=== PATIENT | female | born 1975 | race Two or more races ===

== ENCOUNTER → 2017-02-03 | Outpatient (CLI) | payer OTHER | LOC: FIMAGING 14:32 | PROVIDERS: ATTEND Family Medicine | DX: Z12.39 Encounter for other screening for malignant neoplasm of breast (principal); N64.4 Mastodynia ==

== ENCOUNTER → 2017-04-26 | Outpatient (CLI) | payer OTHER | LOC: CIMAGING 07:44 | PROVIDERS: ATTEND Family Medicine | DX: N92.6 Irregular menstruation, unspecified (principal); N88.8 Other specified noninflammatory disorders of cervix uteri | CPT/HCPCS: 76856-PO ==

== ENCOUNTER 2017-09-06 17:51 | Emergency (ER) | payer SELFPAY ==
[2017-09-06 18:22] VITALS: O2SAT 97
--- NOTE | 2017-09-06 19:56 | EDPHY ---
H & P Stated Complaint: Not feeling well since yesterday;inpt @ [facility] post [facility],dc mon Time Seen by Provider: 09/06/17 19:38 HPI/ROS: CHIEF COMPLAINT: Headache HISTORY OF PRESENT ILLNESS: The patient is a 42-year-old female who comes to the emergency department complaining of left-sided headache. She reports that she was discharged from [facility] on Monday after being there for 23 days with some type of intracranial hemorrhage complicated by a right-sided CVA that affected her left side vision. She states that they could not find the bleed after 2 catheterizations. Those symptoms have now resolved. She was discharged on daily aspirin. [facility] who discontinued her aspirin. Yesterday and today she developed a headache. She denies chest pain. She is not on any anticoagulants. She has taken Tylenol around 2:00 p.m. with moderate improvement. No fever. No nausea vomiting. No altered mental status. REVIEW OF SYSTEMS: Constitutional: denies: chills, fever, recent illness, recent injury EENTM: denies: blurred vision, double vision, nose congestion Respiratory: denies: cough, shortness of breath Cardiac: denies: chest pain, irregular heart rate, lightheadedness, palpitations Gastrointestinal/Abdominal: denies: abdominal pain, diarrhea, nausea, vomiting, blood streaked stools Genitourinary: denies: dysuria, frequency, hematuria, pain Musculoskeletal: denies: joint pain, muscle pain Skin: denies: lesions, rash, jaundice, bruising Neurological: Headache no weakness numbness or paresthesias Hematologic/Lymphatic: denies: blood clots, easy bleeding, easy bruising Immunologic/allergic: denies: HIV/AIDS, transplant EXAM: GENERAL: Well-appearing, well-nourished and in no acute distress. HEAD: Atraumatic, normocephalic. EYES: Pupils equal round and reactive to light, extraocular movements intact, sclera anicteric, conjunctiva are normal. ENT: TMs normal, nares patent, oropharynx clear without exudates. Moist mucous membranes. NECK: Normal range of motion, supple without lymphadenopathy or JVD. LUNGS: Breath sounds clear to auscultation bilaterally and equal. No wheezes rales or rhonchi. HEART: Regular rate and rhythm without murmurs, rubs or gallops. ABDOMEN: Soft, nontender, normoactive bowel sounds. No guarding, no rebound. No masses appreciated. BACK: No CVA tenderness, no spinal tenderness, step-offs or deformities EXTREMITIES: Normal range of motion, no pitting or edema. No clubbing or cyanosis. NEUROLOGICAL: NIH stroke score 0, Cranial nerves II through XII grossly intact. Normal speech, normal gait. 5/5 strength, normal movement in all extremities, normal sensation PSYCH: Normal mood, normal affect. SKIN: Warm, dry, normal turgor, no visible rashes or lesions. Source: Patient Exam Limitations: No limitations - Personal History LMP (Females 10-55): 22-28 Days Ago Current Tetanus Diphtheria and Acellular Pertussis (TDAP): Yes Tetanus Vaccine Date: within ten years - Medical/Surgical History Hx Asthma: No Hx Chronic Respiratory Disease: No Hx Diabetes: No Hx Cardiac Disease: No Hx Renal Disease: No Hx Cirrhosis: No Hx Alcoholism: No Hx HIV/AIDS: No Hx Splenectomy or Spleen Trauma: No Other PMH: pmh- Intracranial hemorrhage, , "spot on lung per xray", GERD,. PSH: appy 02/2016 - Family History Significant Family History: No pertinent family hx - Social History Smoking Status: Former smoker Constitutional: Initial Vital Signs Temperature (C) 37 C 09/06/17 18:05 Heart Rate 63 09/06/17 18:05 Respiratory Rate 18 09/06/17 18:05 Blood Pressure 123/70 H 09/06/17 18:05 O2 Sat (%) 97 09/06/17 18:05 O2 Delivery Mode Room Air Allergies/Adverse Reactions: codeine [Codeine] Allergy (Mild, Verified 09/06/17 18:17) GI tramadol Allergy (Verified 09/06/17 18:19) "makes me have a h/a" Home Medications: Medication Instructions Recorded Aspirin 81mg (*) 10/27/16 Verapamil [Calan 40MG (*)] 40 mg PO 09/06/17 Medical Decision Making - Diagnostics Imaging Results: Imaging Impressions Head CT 09/06/17 19:50 Impression: Normal. Results called and discussed with Dr. Jay Villanueva at 09/06/2017 20:23. ED Course/Re-evaluation: I did evaluate the patient's discharge summary on [facility]. Appears that she was admitted with a small volume left subarachnoid hemorrhage. CT angio and MRI were negative except for at 1 point when she had transient vision loss in her left eye for 20 minutes she had a small area in her right frontal lobe. This vision loss resolved. Is thought to be due to vasospasm and she has been on verapamil ever since. She was discharged and weaned off of Keppra. 8:30 p.m. we discussed the head CT which is reassuring. The patient feels much better and is eager to go home. She again declined pain medication. She is tapering off of prednisone and also taking verapamil. She thinks that the verapamil may be causing her headaches. I advised her to call the people who prescribed from the [place] to ask if she can stop or she needs to continue it. She she states that she has left messages with them. She declines further workup or testing at this time and is ready to go home. We discussed indications for returning. Differential Diagnosis: Partial list of the Differential diagnosis considered include but were not limited to; medication reaction, headache, migraine, intracranial hemorrhage, see a and although unlikely based on the history and physical exam, I also considered infection, tumor, seizure,. - Data Points Laboratory Results: Laboratory Results 09/06/17 19:33 09/06/17 19:33 09/06/17 09/06/17 09/06/17 19:33 19:33 19:33 WBC 10.66 10^3/uL H 10^3/uL (3.80-9.50) RBC 4.57 10^6/uL 10^6/uL (4.18-5.33) Hgb 12.3 g/dL L g/dL (12.6-16.3) Hct 37.7 % L % (38.0-47.0) MCV 82.5 fL fL (81.5-99.8) MCH 26.9 pg L pg (27.9-34.1) MCHC 32.6 g/dL g/dL (32.4-36.7) RDW 15.4 % H % (11.5-15.2) Plt Count 289 10^3/uL 10^3/uL (150-400) MPV 9.3 fL fL (8.7-11.7) Neut % (Auto) 77.1 % H % (39.3-74.2) Lymph % (Auto) 16.3 % % (15.0-45.0) Shannon % (Auto) 5.3 % % (4.5-13.0) Eos % (Auto) 0.4 % L % (0.6-7.6) Baso % (Auto) 0.2 % L % (0.3-1.7) Nucleat RBC Rel Count 0.0 % % (0.0-0.2) Absolute Neuts (auto) 8.22 10^3/uL H 10^3/uL (1.70-6.50) Absolute Lymphs (auto) 1.74 10^3/uL 10^3/uL (1.00-3.00) Absolute Monos (auto) 0.57 10^3/uL 10^3/uL (0.30-0.80) Absolute Eos (auto) 0.04 10^3/uL 10^3/uL (0.03-0.40) Absolute Basos (auto) 0.02 10^3/uL 10^3/uL (0.02-0.10) Absolute Nucleated RBC 0.00 10^3/uL 10^3/uL (0-0.01) Immature Gran % 0.7 % % (0.0-1.1) Immature Gran # 0.07 10^3/uL 10^3/uL (0.00-0.10) PT 12.7 SEC SEC (12.0-15.0) INR 0.96 (0.83-1.16) Sodium 135 mEq/L mEq/L (134-144) Potassium 4.0 mEq/L mEq/L (3.5-5.2) Chloride 101 mEq/L mEq/L (97-110) Carbon Dioxide 25 mEq/l mEq/l (22-31) Anion Gap 9 mEq/L mEq/L (8-16) BUN 11 mg/dL mg/dL (7-23) Creatinine 0.6 mg/dL mg/dL (0.6-1.0) Estimated GFR > 60 Glucose 89 mg/dL mg/dL (70-100) Calcium 9.2 mg/dL mg/dL (8.5-10.4) Departure - Departure Disposition: Home, Routine, Self-Care Clinical Impression: Headache Qualifiers: Headache type: unspecified Headache chronicity pattern: unspecified pattern Intractability: not intractable Qualified Code(s): R51 - Headache Condition: Fair Instructions: Acute Headache (ED) Referrals: Carolyne Clemons DO [Primary Care Provider] - As per Instructions
[2017-09-06 19:57] LABS: % IMMATURE GRANULYOCYTES 0.7 % (0.0-1.1); ABSOLUTE IMMATURE GRANULOCYTES 0.07 10^3/uL (0.00-0.10); ADD DIFF? NO; ADD MORPH? NO; ADD SCAN? NO; ATYPICAL LYMPHOCYTE FLAG 0 (0-99); FRAGMENT RBC FLAG 0 (0-99); HEMATOCRIT 37.7 % (38.0-47.0); HEMOGLOBIN 12.3 g/dL (12.6-16.3); LEFT SHIFT FLG 0 (0-99); LIPEMIA HEMOLYSIS FLAG 80 (0-99); MEAN CELL HEMOGLOBIN 26.9 pg (27.9-34.1); MEAN CELL HEMOGLOBIN CONCENTR. 32.6 g/dL (32.4-36.7); MEAN CELL VOLUME 82.5 fL (81.5-99.8); MEAN PLATELET VOLUME 9.3 fL (8.7-11.7); PLATELET CLUMPS FLAG 0 (0-99); PLATELET COUNT 289 10^3/uL (150-400); RED BLOOD CELL COUNT 4.57 10^6/uL (4.18-5.33); RED CELL DISTRIBUTION WIDTH 15.4 % (11.5-15.2)
[2017-09-06 20:03] LABS: ANION GAP 9 mEq/L (8-16); CALCIUM 9.2 mg/dL (8.5-10.4); CARBON DIOXIDE 25 mEq/l (22-31); CHLORIDE 101 mEq/L (97-110); CREATININE 0.6 mg/dL (0.6-1.0); GLOMERULAR FILTRATION RATE > 60; GLUCOSE 89 mg/dL (70-100); SODIUM 135 mEq/L (134-144)
[2017-09-06 20:08] LABS: INR 0.96 (0.83-1.16); PROTIME(PATIENT) 12.7 SEC (12.0-15.0)
[2017-09-06 20:45] VITALS: BP 116/72; PULSE 80; RESP 16; TEMP 98.1
== END 2017-09-06 20:47 | disposition home or self-care (01) ==
DX: R51 Headache (principal); Z79.82 Long term (current) use of aspirin; Z87.891 Personal history of nicotine dependence

== ENCOUNTER 2019-04-05 10:03 | Emergency (ER) | payer MEDICAID, OTHER ==
[2019-04-05 10:10] VITALS: BP 136/71
--- NOTE | 2019-04-05 10:29 | EDPHY ---
H & P Stated Complaint: "nausea, cramping, feelings like something fell out of my vagina" Time Seen by Provider: 04/05/19 10:07 HPI/ROS: CHIEF COMPLAINT: Concerns about uterine prolapse HISTORY OF PRESENT ILLNESS: 43-year-old female concern about possible uterine prolapse. She works in housekeeping, she 1 for run yesterday and afterward was palpating her genitalia and felt a mass in her vagina, concerned about possible uterine prolapse. Urinary habits have been normal. No abnormal vaginal bleeding or discharge. No current vaginal bleeding. No recent tampon insertion. No straddle injury. No abdominal pain. No fever no chills. PRIMARY CARE PROVIDER: [facility] REVIEW OF SYSTEMS: 10 systems reviewed and negative with the exception of the elements mentioned in the history of present illness PAST MEDICAL & SURGICAL HISTORY: No pertinent medical or surgical history SOCIAL HISTORY:Nonsmoker PHYSICAL EXAM (Prior to examination, patient consented to physical exam, hands were washed and my usual and customary physical exam procedures followed) 1) GENERAL: Well-developed, well-nourished, alert and oriented. Appears to be in no acute distress. 2) HEAD: Normocephalic, atraumatic 3) HEENT: Pupils equal, round, reactive to light bilaterally. Sclera anicteric. 4) NECK: Full range of motion, no meningeal signs. 5) LUNGS: Clear auscultation bilaterally, no wheezes, no rhonchi, no retractions. 6) HEART: Regular rate and rhythm, no murmur, no heave, no gallop. 7) ABDOMEN: No guarding, no rebound, no focal tenderness, negative McBurney's, negative Whipple's, negative Rovsing's, negative peritoneal sign, no hernia, no mass, no inguinal mass. 8) MUSCULOSKELETAL: Moving all extremities, no focal areas of tenderness, no obvious trauma. No peripheral edema or discoloration. 9) BACK: No CVA tenderness, no midline vertebral tenderness, no fluctuance, no step-off, no obvious trauma, no visual or palpable abnormality. 10) SKIN: No rash, no petechiae. [11) PELVIC (with female nurse Smitha at bedside): Normal female external genitalia, no lesions visualized. Speculum examination reveals no vaginal bleeding or discharge, normal vaginal rugae, os closed. Patient asked to bear down there is no gross movement of the uterus, no gross prolapse of the uterus, No masses appreciated. DIFFERENTIAL DIAGNOSIS: In no particular order including but not limited to ectopic , ovarian cyst, ovarian torsion, uterine prolapse - Personal History LMP (Females 10-55): Over 28 Days Ago Current Tetanus/Diphtheria Vaccine: Yes Current Tetanus Diphtheria and Acellular Pertussis (TDAP): Yes Tetanus Vaccine Date: within ten years - Medical/Surgical History Hx Asthma: No Hx Chronic Respiratory Disease: No Hx Diabetes: No Hx Cardiac Disease: No Hx Renal Disease: No Hx Cirrhosis: No Hx Alcoholism: No Hx HIV/AIDS: No Hx Splenectomy or Spleen Trauma: No Other PMH: pmh- Intracranial hemorrhage, , "spot on lung per xray", GERD,. PSH: appy 02/2016 - Social History Smoking Status: Former smoker Constitutional: Initial Vital Signs Temperature (C) 36.6 C 04/05/19 10:07 Heart Rate 60 04/05/19 10:07 Respiratory Rate 16 04/05/19 10:07 Blood Pressure 136/71 H 04/05/19 10:07 O2 Sat (%) 97 04/05/19 10:07 O2 Delivery Mode Room Air Allergies/Adverse Reactions: codeine [Codeine] Allergy (Mild, Verified 09/06/17 18:17) GI tramadol Allergy (Verified 09/06/17 18:19) "makes me have a h/a" Home Medications: Medication Instructions Recorded Aspirin 81mg (*) 10/27/16 Iron 04/05/19 Medical Decision Making - Diagnostics Imaging Results: Imaging Impressions Pelvic/Renal Ultrasound 04/05/19 10:39 Impression: 1. No acute findings. 2. Homogeneous thickening of the endometrium, similar to the prior study, measuring 1.8 cm with no discrete mass or polyp. Findings discussed with Clovis Long 04/05/2019 at 11:29. Images reviewed myself ED Course/Re-evaluation: Patient has no visible or palpable uterine prolapse or vaginal mass on exam. She is not . Urinalysis is negative. Pelvic ultrasound shows good blood flow to bilateral ovaries. Specific etiology of her subjective finding yesterday's incompletely clear at this time. However, I think she can be safely discharged at this time with close [facility] and with her civil project engineer. Recommend no heavy lifting. She feels comfortable being discharged. Patient feels comfortable being discharged. All questions and concerns addressed by myself. Patient given my usual and customary discharge precautions and instructions regarding their clinical impression. Care of patient under supervision of primary supervising physician Dr Baldwin . - Data Points Laboratory Results: 04/05/19 04/05/19 10:30 10:30 Urine Color YELLOW Urine Appearance HAZY Urine pH 6.0 (5.0-7.5) Ur Specific [place] 1.026 (1.002-1.030) Urine Protein NEGATIVE (NEGATIVE) Urine Ketones NEGATIVE (NEGATIVE) Urine Blood NEGATIVE (NEGATIVE) Urine Nitrate NEGATIVE (NEGATIVE) Urine Bilirubin NEGATIVE (NEGATIVE) Urine Urobilinogen NEGATIVE EU EU (0.2-1.0) Ur Leukocyte Esterase NEGATIVE (NEGATIVE) Urine RBC 1-3 /hpf /hpf (0-3) Urine WBC 1-3 /hpf /hpf (0-3) Ur Epithelial Cells TRACE /lpf /lpf (NONE-1+) Urine Bacteria 2+ /hpf H /hpf (NONE SEEN) Urine Mucus 1+ /lpf /lpf (NONE-1+) Urine Glucose NEGATIVE (NEGATIVE) Urine Test NEGATIVE Departure - Departure Disposition: Home, Routine, Self-Care Clinical Impression: Abdominal pain Qualifiers: Abdominal location: unspecified location Qualified Code(s): R10.9 - Unspecified abdominal pain Condition: Good Instructions: Abdominal Pain (ED) Additional Instructions: Avoid heavy lifting. Seek immediate medical attention if you develop new or worsening symptoms, if you develop fevers, chills, inability to tolerate oral intake or any other symptoms that concerns you. Referrals: [facility] [address] [Primary Care Provider] - 1-2 days without fail
== END 2019-04-05 11:49 | disposition home or self-care (01) ==
DX: R10.9 Unspecified abdominal pain (principal)